=== PATIENT | male | born 1995 | race Caucasian/White ===

== ENCOUNTER 2018-07-14 08:16 | Emergency (ER) | payer OTHER ==
[~2018-07-14] VITALS: Ht 175.3 cm; Wt 56.3 kg
[2018-07-14 08:20] VITALS: BP 128/73
--- NOTE | 2018-07-14 08:31 | PHYS DOC ---
Adult General Chief Complaint Chief Complaint: BACK PAIN OR INJURY [facility] HPI Patient is a 22 year old medical presents with 8 out of 10 pain on his right shoulder mid and right back that began yesterday after he lifted a car bumper at work. 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 Patient states the pain is worse on range of motion as well as certain movements. He states he has tried a heating pad with some relief, he states his job sent him to the ED to be evaluated. Patient denies any loss of bowel/ bladder function. Review of Systems Review of Systems Constitutional: Denies fever or chills [] Eyes: Denies change in visual acuity, redness, or eye pain [] HENT: Denies nasal congestion or sore throat [] Respiratory: Denies cough or shortness of breath [] Cardiovascular: No additional information not addressed in HPI [] GI: Denies abdominal pain, nausea, vomiting, bloody stools or diarrhea [] : Denies dysuria or hematuria [] Musculoskeletal: Reports back pain Integument: Denies rash or skin lesions [] Neurologic: Denies headache, focal weakness or sensory changes [] All other systems were reviewed and found to be within normal limits, except as documented in this note. Allergies Allergies Allergies Coded Allergies Type Severity Reaction Last Updated Verified No Known Drug Allergies 09/21/14 No Physical Exam Physical Exam Constitutional: Well developed, well nourished, no acute distress, non-toxic appearance. [] HENT: Normocephalic, atraumatic, bilateral external ears normal, oropharynx moist, no oral exudates, nose normal. [] Eyes: PERRLA, EOMI, conjunctiva normal, no discharge. [] Neck: Normal range of motion, no tenderness, supple, no stridor. [] Cardiovascular:Heart rate regular rhythm, no murmur [] Lungs & Thorax: Bilateral breath sounds clear to auscultation [] Abdomen: Bowel sounds normal, soft, no tenderness, no masses, no pulsatile masses. [] Skin: Warm, dry, no erythema, no rash. [] Back: Diffuse paraspinal muscle tenderness to the right lumbar spine, no midline lumbar spine tenderness, no CVA tenderness. [] Extremities: No tenderness, no cyanosis, no clubbing, ROM intact, no edema. [] Neurologic: Alert and oriented X 3, normal motor function, normal sensory function, no focal deficits noted. [] Psychologic: Affect normal, judgement normal, mood normal. [] Current Patient Data Vital Signs Vital Signs Date Time Temp Pulse Resp B/P (MAP) Pulse Ox O2 Delivery O2 Flow Rate FiO2 07/14/18 08:20 98.7 127 16 128/73 (91) 98 Room Air 98.7 EKG EKG [] Radiology/Procedures Radiology/Procedures [] Course & Med Decision Making Course & Med Decision Making Pertinent Labs and Imaging studies reviewed. (See chart for details) This is a 22-year-old male patient presenting to the ED today with muscle strain to his low back and right shoulder that began yesterday after he lifted a a car bumper at work. Patient has no cauda equina syndrome symptoms. His pain is musculoskeletal. Will be discharged with naproxen and Flexeril. He is already using the heating pad with relief. Instructed to follow-up with his own doctor in one week. Provided return precautions and discharged in stable condition. Dragon Disclaimer Dragon Disclaimer This electronic medical record was generated, in whole or in part, using a voice recognition dictation system. Departure Departure Impression: Primary Impression: Musculoskeletal strain Disposition: HOME, SELF-CARE Condition: STABLE Patient Instructions: Muscle Strain, [id number] Additional Instructions: You were seen for muscle strain after lifting at work. Continue using a heating pad as needed. Take the prescribed medications as needed for pain. Follow-up with your own doctor in 1-2 weeks. Come back to the ED at any point symptoms worsen. Scripts Cyclobenzaprine Hcl (CYCLOBENZAPRINE HCL) 10 Mg Tablet 1 TAB PO TID, #30 TAB Prov: EDITH MORGAN APRN 07/14/18 Naproxen (NAPROXEN) 500 Mg Tablet. 1 TAB PO BID, #20 TAB 0 Refills Prov: EDITH MORGAN APRN 07/14/18 EDITH MORGAN APRN Jul 14, 2018 08:31
[2018-07-14] MEDS ORDERED: CYCL10TA2 PO (08:37)
[2018-07-14] MEDS ORDERED: NAPR500T8 PO (08:37)
== END 2018-07-14 09:14 | disposition home or self-care (01) ==
LOC: ER 08:16
DX: S39.012A Strain of muscle, fascia and tendon of lower back, initial encounter (principal); M25.511 Pain in right shoulder; X50.0XXA Overexertion from strenuous movement or load, initial encounter; Y93.89 Activity, other specified; Y92.69 Other specified industrial and construction area as the place of occurrence of the external cause; Y99.0 Civilian activity done for income or pay
CPT/HCPCS: 99283